=== PATIENT | male | born 1980 ===

== ENCOUNTER → 2019-09-16 | Outpatient (CLI) | payer OTHER | LOC: MHCPAIN 09:10 | DX: G89.29 Other chronic pain (principal); M47.817 Spondylosis without myelopathy or radiculopathy, lumbosacral region; M54.16 Radiculopathy, lumbar region; M53.3 Sacrococcygeal disorders, not elsewhere classified | CPT/HCPCS: G0463 ==

== ENCOUNTER → 2019-10-01 | Outpatient (CLI) | payer OTHER | LOC: MHCPAIN 09:35 | DX: M43.17 Spondylolisthesis, lumbosacral region (principal); M51.27 Other intervertebral disc displacement, lumbosacral region | CPT/HCPCS: J1100; Q9967 ==

== ENCOUNTER → 2019-11-04 | Outpatient (CLI) | payer OTHER | LOC: MHCPAIN 08:46 | DX: M47.817 Spondylosis without myelopathy or radiculopathy, lumbosacral region (principal); M54.16 Radiculopathy, lumbar region | CPT/HCPCS: G0463 ==

== ENCOUNTER → 2019-11-19 | Outpatient (CLI) | payer OTHER | LOC: MHCPAIN 09:38 | DX: M43.17 Spondylolisthesis, lumbosacral region (principal); M51.27 Other intervertebral disc displacement, lumbosacral region ==

== ENCOUNTER → 2019-12-08 | Outpatient (CLI) | payer OTHER | LOC: MHCPAIN 09:08 | DX: M53.3 Sacrococcygeal disorders, not elsewhere classified (principal); M54.16 Radiculopathy, lumbar region; M43.07 Spondylolysis, lumbosacral region | CPT/HCPCS: G0463 ==